=== PATIENT | female | born 1960 | race Caucasian/White ===

== ENCOUNTER 2021-09-27 00:30 | Emergency (ER) | payer MEDICAID, OTHER ==
[2021-09-27] MEDS ORDERED: Acetaminophen 500 MG Tab PO ONE (01:14)
[2021-09-27 01:53] LABS: CORONAVIRUS COVID-19 NAA POSITIVE (NEGATIVE)
[2021-09-27] MEDS ORDERED: Ibuprofen 400 MG Tab PO ONE (02:11)
== END 2021-09-27 03:19 | disposition home or self-care (01) ==
LOC: JP.ED 00:30
DX: U07.1 COVID-19 (principal); J06.9 Acute upper respiratory infection, unspecified; Z72.0 Tobacco use; Z88.2 Allergy status to sulfonamides; Z88.0 Allergy status to penicillin
CPT/HCPCS: 0241U; 99284; A9270